=== PATIENT | male | born 1950 | race African-American/Black ===

== ENCOUNTER → 2017-11-20 | Outpatient (CLI) | payer OTHER | END | disposition home or self-care (01) | LOC: KCIC CT 09:43 | DX: Z12.2 Encounter for screening for malignant neoplasm of respiratory organs (principal); R91.8 Other nonspecific abnormal finding of lung field; Z87.891 Personal history of nicotine dependence | CPT/HCPCS: 71250 ==

== ENCOUNTER → 2018-02-24 | Outpatient (CLI) | payer OTHER | END | disposition home or self-care (01) | LOC: KCIC 10:07 | DX: M25.461 Effusion, right knee (principal); Z87.891 Personal history of nicotine dependence | CPT/HCPCS: 73562 ==

== ENCOUNTER → 2018-12-04 | Outpatient (CLI) | payer OTHER ==
--- NOTE | 2018-12-04 10:05 | KCIC ---
Examination: CT chest without contrast HISTORY: History of pulmonary nodules follow-up Comparison: 11/20/2017 TECHNIQUE: Axial CT images of chest were performed without contrast. Coronal and sagittal reformats are performed Exposure: One or more of the following individualized dose reduction techniques were utilized for this examination: 1. Automated exposure control 2. Adjustment of the mA and/or kV according to patient size 3. Use of iterative reconstruction technique FINDINGS: The visualized thyroid gland grossly appears unremarkable. The central airways are patent. Mild aortic atherosclerosis. Coronary artery calcifications identified. The heart size grossly appears unremarkable. No radiologically significant mediastinal lymphadenopathy. Examination limited lack of IV contrast. There is a 5 mm solid nodule identified in the lobe of the lung similar to prior exam. No evidence of effusion or pneumothorax. The visualized noncontrasted liver demonstrates tiny subcentimeter cystic structures similar to prior exam with the largest measuring 6 mm in the left lobe probably cysts. The visualized spleen, adrenals grossly appears unremarkable. Faint nonspecific stranding identified about the partially visualized left kidney. Minimal degenerative changes thoracic spine. IMPRESSION: 1. 5 mm solid nodule right middle lobe lung similar to prior exam. 2. Multiple hypodensities in the liver are difficult to characterize probably cysts. Electronically signed by: Ascencion Woo MD (12/04/2018 10:02 AM) [id number]
== END | disposition home or self-care (01) ==
LOC: KCIC CT 09:14
PROVIDERS: ATTEND Physician Assistant Medical
DX: R91.1 Solitary pulmonary nodule (principal); I70.0 Atherosclerosis of aorta; I25.10 Atherosclerotic heart disease of native coronary artery without angina pectoris; M47.814 Spondylosis without myelopathy or radiculopathy, thoracic region; I10 Essential (primary) hypertension; F17.210 Nicotine dependence, cigarettes, uncomplicated
CPT/HCPCS: 71250

== ENCOUNTER → 2019-06-09 | Outpatient (CLI) | payer OTHER ==
--- NOTE | 2019-06-09 11:09 | KCIC ---
PA and lateral views of the chest. Comparison: None. Indication: Cough, coarse lung sounds in the lower lobe Findings: The heart size is normal. No pneumothorax or effusion. No air space or interstitial disease. The bony structures are intact. Impression: 1. No acute cardiopulmonary process. Electronically signed by: Pj Cabello MD (06/09/2019 11:06 AM) [id number]
== END | disposition home or self-care (01) ==
LOC: KCIC 10:11
PROVIDERS: ATTEND Physician Assistant Medical
DX: R05 Cough (principal)
CPT/HCPCS: 71046